=== PATIENT | female | born 1960 | race Caucasian/White ===

== ENCOUNTER 2016-04-04 16:04 | Inpatient (IN) | payer OTHER ==
[2016-04-04] VITALS (8 sets, daily range): BP systolic 80–115; BP diastolic 43–60
[~2016-04-04] VITALS: Ht 165.1 cm; Wt 99.3 kg
[2016-04-04] MEDS ORDERED: ASPIRIN 81 MG CHEW (CHILDREN'S ASA) PO ONE (16:30)
[2016-04-04] MEDS ORDERED: RX-NITROGLYCERIN 0.4 MG TAB BTL 25'S SL ONE (16:30)
[2016-04-04] MEDS ORDERED: LORazepam INJ 2 MG/ML (ATIVAN) VIAL IVP ONE (16:30)
[2016-04-04 16:36] LABS: BASOPHILS # (AUTO) 0.1 10^3/uL (0.0-0.1); BASOPHILS % (AUTO) 0 % (0-10); EOSINOPHILS # (AUTO) 0.2 10^3/uL (0.0-0.3); EOSINOPHILS % (AUTO) 1 % (0-10); LYMPHOCYTES % (AUTO) 20 % (12-44); MEAN CORPUSCULAR HEMOGLOBIN 28 PG (25-34); MEAN CORPUSCULAR HGB CONC 32 G/DL (32-36); MEAN CORPUSCULAR VOLUME 88 FL (80-99); MEAN PLATELET VOLUME 9.7 FL (7.4-10.4); MONOCYTES # (AUTO) 1.2 X 10^3 (0.0-1.0); MONOCYTES % (AUTO) 6 % (0-12); NEUTROPHILS # (AUTO) 14.5 X 10^3 (1.8-7.8); NEUTROPHILS % (AUTO) 73 % (42-75); PLATELET COUNT 294 10^3/uL (130-400); RED BLOOD COUNT 4.75 10^6/uL (4.35-5.85); RED CELL DISTRIBUTION WIDTH 14.9 % (10.0-14.5)
[2016-04-04 16:44] LABS: INR 0.9 (0.8-1.4)
[2016-04-04] MEDS ORDERED: NS IV 1000 ML 1,000 ML IV ONE ×2 (16:53→18:08)
[2016-04-04 16:54] LABS: ALANINE AMINOTRANSFERASE 26 U/L (0-55); ALBUMIN 3.9 G/DL (3.2-4.5); ANION GAP 13 MMOL/L (5-14); ASPARTATE AMINO TRANSFERASE 19 U/L (5-34); BILIRUBIN,TOTAL 0.3 MG/DL (0.1-1.0); BLOOD UREA NITROGEN 20 MG/DL (7-18); BUN/CREATININE RATIO 19; CALCIUM 8.9 MG/DL (8.5-10.1); CARBON DIOXIDE 22 MMOL/L (21-32); CHLORIDE 103 MMOL/L (98-107); CREATININE SERUM 1.07 MG/DL (0.60-1.30); GFR ESTIMATED 53; GLUCOSE 140 MG/DL (70-105); MAGNESIUM 1.6 MG/DL (1.8-2.4); POTASSIUM 4.1 MMOL/L (3.6-5.0); SODIUM 138 MMOL/L (135-145); TOTAL PROTEIN 6.3 G/DL (6.4-8.2)
[2016-04-04 16:59] LABS: MYOGLOBIN SERUM 42.8 NG/ML (10.0-92.0)
[2016-04-04 17:05] LABS: BAND NEUTROPHILS 0 %; BASOPHILS % (MANUAL) 0 %; EOSINOPHILS % (MANUAL) 0 %; LYMPHOCYTES % (MANUAL) 20 %; NEUTROPHILS % (MANUAL) 75 %
--- NOTE | 2016-04-04 17:07 | Diagnostic Imaging Report ---
INDICATION: Sudden onset shortness of breath and chest pain. EXAMINATION: PA chest was obtained at 4:30 p.m. FINDINGS: Heart and mediastinal silhouette are normal in appearance. The lungs are clear. There is no pneumothorax or pleural fluid. IMPRESSION: Negative chest. Dictated by: Dictated on workstation # [id number]
[2016-04-04] MEDS ORDERED: IOHEXOL 350 MG/ML 100 ML (OMNIPAQUE 350) VIAL IV ONE (17:45)
[2016-04-04] MEDS ORDERED: IOHEXOL 350 MG/ML 150 ML (OMNIPAQUE 350) VIAL IV ONE (17:45)
[2016-04-04] MEDS ORDERED: NS 100 ML (IVPB) BAG IV ONE (17:45)
[2016-04-04] MEDS ORDERED: cefTRIAXone INJECTION 1,000 MG in NORMAL SALINE (BAXTER MINI) 50 ML IV ONE (18:00)
--- NOTE | 2016-04-04 18:06 | ED Chest Pain ---
General Chief Complaint: Chest Pain Stated Complaint: CHEST PAIN/SOA Nursing Triage Note: PT TO ED 6 PER W/C W/ C/O CHEST PAIN ET SOA ONSET WHILE TRAVELING IN BACK SEAT OF VEHICLE FROM [facility] AFTER DROPPING GRANDDAUGHTER OFF. STATES SHE WAS ABOUT TO FALL ASLEEP WHEN SHE HAD SUDDEN ONSET NAUSEA ET "EVERYTHING WENT DARK" Nursing Sepsis Screen: No Definite Risk Source: patient Exam Limitations: no limitations History of Present Illness Time seen by provider: 16:11 Initial Comments This patient presents to the emergency room with complaints of acute lightheadedness, shortness of air, chest pain, and nausea that occurred suddenly while riding in the car. She also reports having sudden decrease in acuity of vision during the episode. She promptly presented to the emergency room after onset of symptoms. She is a patient of Dr. Noguera in [place]. She reports a history of COPD, asthma, tachycardia, and mitral valve prolapse. She reports having a heart catheter 3-4 years ago and a stress test about 2 years ago for evaluation of chronic chest pain. She reports no significant abnormalities with these tests aside from mitral valve prolapse. Studies were done at [facility] in [place]. She reports her symptoms today were beyond her chronic symptomatology. Allergies and Home Medications Allergies Coded Allergies: erythromycin base (Verified Allergy, Unknown, 04/04/16) Unspecified adverse reactions morphine (Verified Allergy, Unknown, 04/04/16) cefdinir (Verified Adverse Reaction, Severe, 04/04/16) Diarrhea and C. difficile colitis clindamycin (Verified Adverse Reaction, Severe, 04/04/16) Diarrhea and C. difficile colitis Home Medications 10 MG PRN ITCHING Prescribed by: MATT DAMON on 04/06/16 1404 Ciprofloxacin HCl 500 Mg Tablet #8 500 MG PO BID Prescribed by: OMER DEL ROSARIO on 04/06/16 1257 Esomeprazole Magnesium 20 Mg Capsule.dr #1 20 MG PO DAILY Prescribed by: MATT DAMON on 04/06/16 1404 Furosemide 20 Mg Tablet #1 20 MG PO UD every other day Prescribed by: MATT DAMON on 04/06/16 1404 Hydrocodone/Acetaminophen 1 Each Tablet #1 1 EACH PO Q4H PRN PRN PAIN Prescribed by: MATT DAMON on 04/06/16 1404 L. Acidophilus/Bulgaricus 1 Each Gran.pack #1 1 EACH PO PRN Prescribed by: MATT DAMON on 04/06/16 1404 Lisinopril 10 Mg Tablet #1 10 MG PO DAILY Prescribed by: MATT DAMON on 04/06/16 140 Loperamide HCl 2 Mg Tablet #1 2 MG PO PRN Prescribed by: MATT DAMON on 04/06/16 1404 Magnesium 250 Mg Tablet #1 250 MG PO DAILY take 3 tabs q am Prescribed by: MATT DAMON on 04/06/16 1404 Meloxicam 15 Mg Tablet #1 15 MG PO DAILY Prescribed by: MATT DAMON on 04/06/16 1404 Metoprolol Succinate 50 Mg Tab.er.24h #1 50 MG PO HS Prescribed by: MATT DAMON on 04/06/16 1404 Metronidazole 500 Mg Tablet #12 500 MG PO TID Prescribed by: OMER DEL ROSARIO on 04/06/16 1257 Review of Systems Constitutional: no symptoms reported EENTM: See HPI Respiratory: See HPI Cardiovascular: See HPI Gastrointestinal: See HPI Genitourinary: No Symptoms Reported Musculoskeletal: no symptoms reported Skin: no symptoms reported Psychiatric/Neurological: See HPI Endocrine: No Symptoms Reported Hematologic/Lymphatic: No Symptoms Reported Past Bkcyfwd-Nlupzj-Mfilta Hx Patient Social History Alcohol Use: Denies Use Recreational Drug Use: No Smoking Status: Never a Smoker Recent Foreign Travel: No Contact w/Someone Who Travel: No Recent Infectious Disease Expo: No Recent Hopitalizations: No Physical Abuse Screen: No Sexual Abuse: No Surgeries HX Surgeries: No Respiratory Hx Respiratory Disorders: Yes Respiratory Disorders: Asthma, COPD Cardiovascular Hx Cardiac Disorders: Yes (inappropriate tachycardia) Cardiac Disorders: Heart Attack, Valvular Heart Disease (mitral valve prolapse) Neurological Hx Neurological Disorders: No Reproductive System : No Genitourinary Hx Genitourinary Disorders: No Gastrointestinal Hx Gastrointestinal Disorders: Yes Gastrointestinal Disorders: C-Diff Musculoskeletal Hx Musculoskeletal Disorders: No Endocrine Hx Endocrine Disorders: Yes Endocrine Disorders: Diabetes, Non-Insulin dep HEENT HX ENT Disorders: No Cancer Hx Cancer: No Psychosocial Hx Psychiatric Problems: No Integumentary HX Skin/Integumentary Disorder: No Blood Transfusions Hx Blood Disorders: No Physical Exam Vital Signs Vital Sign - Last 12Hours 04/04/16 17:36 O2 Flow Rate 2 Capillary Refill : Less Than 3 Seconds General Appearance: WD/WN Anxious Mild Distress HEENT: PERRL/EOMI Normal ENT Inspection Pharynx Normal Neck: Non Tender Supple Respiratory: Chest Non Tender Lungs Clear Normal Breath Sounds No Accessory Muscle Use No Respiratory Distress Cardiovascular: Regular Rate, Rhythm No Edema No Murmur Normal Peripheral Pulses Gastrointestinal: Normal Bowel Sounds Non Tender Soft Extremity: Normal Inspection Non Tender No Calf Tenderness No Pedal Edema Other (negative Krystin) Neurologic/Psychiatric: Alert Oriented x3 No Motor/Sensory Deficits Normal Mood/Affect roll skinner II-XII Norm as Tested Skin: Normal Color Warm/Dry Critical Care Note Critical Care Start Time: 17:00 Stop Time: 19:30 Progress/Results/Core Measures Results/Orders Lab Results Laboratory Tests Test 04/04/16 16:25 04/04/16 17:35 04/04/16 18:00 04/04/16 19:44 Range/Units Activated Partial Thromboplast Time 21 L 24-35 SEC Alanine Aminotransferase (ALT/SGPT) 26 0-55 U/L Albumin 3.9 3.2-4.5 G/DL Alkaline Phosphatase 73 40-136 U/L Anion Gap 13 5-14 MMOL/L Aspartate Amino Transf (AST/SGOT) 19 5-34 U/L BUN/Creatinine Ratio 19 Band Neutrophils 0 % Basophils # (Auto) 0.1 0.0-0.1 10^3/uL Basophils % (Manual) 0 % Basophils (%) (Auto) 0 0-10 % Blood Morphology Comment NORMAL Blood Urea Nitrogen 20 H 7-18 MG/DL C-Reactive Protein High Sensitivity 1.85 H 0.00-0.50 MG/DL Calcium Level 8.9 8.5-10.1 MG/DL Carbon Dioxide Level 22 21-32 MMOL/L Chloride Level 103 98-107 MMOL/L Creatinine 1.07 0.60-1.30 MG/DL D-Dimer 0.30 0.00-0.49 UG/ML Eosinophils # (Auto) 0.2 0.0-0.3 10^3/uL Eosinophils % (Manual) 0 % Eosinophils (%) (Auto) 1 0-10 % Estimat Glomerular Filtration Rate 53 Glucose Level 140 H 70-105 MG/DL Hematocrit 42 35-52 % Hemoglobin 13.4 11.5-16.0 G/DL INR Comment 0.9 0.8-1.4 Lymphocytes # (Auto) 4.0 1.0-4.0 X 10^3 Lymphocytes % (Manual) 20 % Lymphocytes (%) (Auto) 20 12-44 % Magnesium Level 1.6 L 1.8-2.4 MG/DL Mean Corpuscular Hemoglobin 28 25-34 PG Mean Corpuscular Hemoglobin Concent 32 32-36 G/DL Mean Corpuscular Volume 88 80-99 FL Mean Platelet Volume 9.7 7.4-10.4 FL Monocytes # (Auto) 1.2 H 0.0-1.0 X 10^3 Monocytes % (Manual) 5 % Monocytes (%) (Auto) 6 0-12 % Myoglobin 42.8 10.0-92.0 NG/ML Neutrophils # (Auto) 14.5 H 1.8-7.8 X 10^3 Neutrophils % (Manual) 75 % Neutrophils (%) (Auto) 73 42-75 % Platelet Count 294 130-400 10^3/uL Potassium Level 4.1 3.6-5.0 MMOL/L Prothrombin Time 12.0 L 12.2-14.7 SEC Red Blood Count 4.75 4.35-5.85 10^6/uL Red Cell Distribution Width 14.9 H 10.0-14.5 % Sodium Level 138 135-145 MMOL/L Total Bilirubin 0.3 0.1-1.0 MG/DL Total Protein 6.3 L 6.4-8.2 G/DL Troponin I < 0.30 <0.30 NG/ML White Blood Count 20.0 H 4.3-11.0 10^3/uL Lactic Acid Level 3.9 *H 2.7 *H 0.5-2.0 MMOL/L Urine Bacteria NONE /HPF Urine Bilirubin NEGATIVE NEGATIVE Urine Casts NONE /LPF Urine Clarity CLEAR Urine Color YELLOW Urine Crystals NONE /LPF Urine Culture Indicated NO Urine Glucose (UA) NEGATIVE NEGATIVE Urine Ketones NEGATIVE NEGATIVE Urine Leukocyte Esterase NEGATIVE NEGATIVE Urine Mucus NEGATIVE /LPF Urine Nitrite NEGATIVE NEGATIVE Urine Protein 2+ H NEGATIVE Urine RBC NONE /HPF Urine RBC (Auto) NEGATIVE NEGATIVE Urine Specific [place] 1.010 L 1.016-1.022 Urine Squamous Epithelial Cells RARE /HPF Urine Urobilinogen NORMAL NORMAL MG/DL Urine WBC NONE /HPF Urine pH 6 5-9 Micro Results Microbiology 04/04/16 Blood Culture - Preliminary, Resulted No growth 04/04/16 Blood Culture - Preliminary, Resulted No growth My Orders Orders-ANA LILIA UPTON MD Aspirin Chewable Tablet (Baby Aspirin Ch (04/04/16 16:30) Rx-Nitroglycerin Sl Tabs (Rx-Nitrostat S (04/04/16 16:30) Lorazepam Injection (Ativan Injection) (04/04/16 16:30) Ns Iv 1000 Ml (Sodium Chloride 0.9%) (04/04/16 16:53) Lactic Acid Analyzer (04/04/16 17:26) Ua Culture If Indicated (04/04/16 17:26) Blood Culture (04/04/16 17:26) Ct Angio Chst/Abd/Pelv W (04/04/16 17:26) Iohexol Injection (Omnipaque 350 Mg/Ml 1 (04/04/16 17:45) Ns (Ivpb) (Sodium Chloride 0.9% Ivpb Bag (04/04/16 17:45) Iohexol Injection (Omnipaque 350 Mg/Ml 1 (04/04/16 17:45) Ceftriaxone Injection (Rocephin Injectio (04/04/16 18:00) Ns Iv 1000 Ml (Sodium Chloride 0.9%) (04/04/16 18:08) Ceftriaxone Injection (Rocephin Injectio (04/04/16 18:11) Normal Saline (Fernandes Mini) (Ns (Fernandes (04/04/16 18:11) Hs C Reactive Protein (04/04/16 18:22) Ns Iv 1000 Ml (Sodium Chloride 0.9%) (04/04/16 18:45) Vancomycin Iv Add-Farwell (Vancomycin Iv (04/04/16 18:45) Vancomycin Iv Add-[place] (Vancomycin Iv (04/04/16 18:52) Sodium Chloride (Add-[place]well) (Ns (Add-V (04/04/16 18:52) Medications Given in ED Vital Signs/I&O Vital Sign - Last 12Hours 04/04/16 04/04/16 04/04/16 16:16 16:16 17:36 Temp 99.7 Pulse 97 Resp 24 B/P 108/51 Pulse Ox 98 95 O2 Delivery Room Air Room Air Nasal Cannula O2 Flow Rate 2 Blood Pressure Mean: 70 Progress Note #1: Time: 16:52 Progress Note Patient is feeling better and reports her chest pain is back to baseline. Systolic blood pressure was noted to be 88. IV fluids were initiated. Progress Note #2: Time: 17:55 Progress Note Patient became suddenly hypotensive with a systolic blood pressure of 58 with a decrease in vision. Patient had been given a small dose of Ativan for her anxiety which may have impacted her blood pressure as well. Patient was placed in Trendelenburg. IV fluids are being bolused by pressure bag. Nitroglycerin had been previously ordered but was never administered. She also developed intense shivering. White count was noted to be 20,000 at the time. Lactic acid and blood culture were drawn. Sepsis is now within the consideration as a cause of her hypotension. Because patient also had chest pain, there was concern for developing aneurysmal bleed. Patient was taken to CT for angiogram. CT angiogram of the chest, abdomen, and pelvis was viewed by me. There were no obvious abnormalities. Report is pending. Patient has received one full liter of IV fluids and a second liter is infusing. She has 2 IVs. Antibiotics will be started as soon as possible. Patient is still in CT scan at the moment. Progress Note #3: Time: 18:30 Progress Note Blood pressure is now well within normal range after infusion of IV fluids. CT angiogram of the chest, abdomen and pelvis revealed no aneurysm. 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 This could be the source of potential sepsis. CRP has been ordered to help differentiate causes of hypotension. Lactic acid was elevated. Rocephin is infusing for initial treatment of possible sepsis. Progress Note #4: Time: 19:12 Progress Note Patient's blood pressures are stable. She remains tachycardic in the 120s. She received a gram of Rocephin and vancomycin is infusing along with a third liter of IV fluids running at 500 mL per hour. This should complete a 30 ML per kilogram bolus. Although patient has a septic picture with an elevated lactic acid, WBC, and hypotension, there is no clear source of infection. Patient will be treated as though she is septic for the time being until this convoluted case is sorted out. Dr. Del Rosario was contacted and agrees to admit the patient to the ICU with sepsis and chest pain. She requests consultation with Dr. Hamilton, Dr. Velasquez, and Dr. Agosto. Dr. Hamilton agrees with admission to the ICU with treatment for suspected sepsis. He suggests further antibiotics be Cipro and Flagyl to treat the potential panniculitis of the mesentery. Dr. Hamilton was contacted at 18:57. Dr. Velasquez was contacted at 18: 06. He agrees to consultation. Dr. Agosto was contacted at 19:10 and agrees with the antibiotic selection. Patient is concerned about C. difficile as she has had multiple C. difficile infections in the past. She cites clindamycin and Cefdinir as inciting antibiotics. She also has had adverse reactions to erythromycin and has an allergy to morphine. Probiotics will be started along with her antibiotics. ECG Initial ECG Impression Date: Apr 04, 2016 Initial ECG Impression Time: 16:07 Initial ECG Rate: 91 Initial ECG Rhythm: Normal Sinus Initial ECG Impression: Normal Comment Normal sinus rhythm with no ST elevation or depression. No abnormal intervals. LVH by voltage. Diagnostic Imaging Diagonstic Imaging: Xray Plain Films/CT/US/NM/MRI: chest Comments NAME: JOSE MIGUEL KLINE [facility] REC#: [id number] PT STATUS: REG ER : 1960 PHYSICIAN: KARYNA MEDEIROS APRN ADMIT DATE: 04/04/16/ER Signed Date of Exam: 04/04/16 CHEST 1 VIEW, AP/PA ONLY INDICATION: Sudden onset shortness of breath and chest pain. EXAMINATION: PA chest was obtained at 4:30 p.m. FINDINGS: Heart and mediastinal silhouette are normal in appearance. The lungs are clear. There is no pneumothorax or pleural fluid. IMPRESSION: Negative chest. Dictated by: Dictated on workstation # [id number] Dict: 04/04/16 1643 Trans: 04/04/161705 [facility] [id number] Interpreted by: JAKUB LOPZE MD Electronically signed by:JAKUB LOPEZ MD 04/04/16 1709 Plain Films/CT/US/NM/MRI: chest, abdomen, pelvis Comments CT angiogram of the chest, abdomen, and pelvis viewed by me and report reviewed. See report below: NAME: JOSE MIGUEL KLINE [facility] REC#: [id number] PT STATUS: REG ER : 1960 PHYSICIAN: ANA LILIA UPTON MD ADMIT DATE: 04/04/16/ER Draft Date of Exam:04/04/16 CT ANGIO CHST/ABD/PELV W PROCEDURE: CT angiography of the chest with contrast and CT abdomen and pelvis with contrast. TECHNIQUE: Multiple contiguous axial images were obtained through the chest, abdomen and pelvis after administration of intravenous contrast. Reconstructed MIP CT angiography acquisitions of the aorta were then performed. INDICATION: Aortic aneurysm COMPARISON: None FINDINGS: Attention was first directed to the vascular structures of the chest, abdomen, and pelvis. No aneurysm is demonstrated in the chest, abdomen or pelvis. On the axial images through the chest, there is a curvilinear area of contrast enhancement along the medial aspect of the aortic root and ascending aorta which is felt to be motion artifact from the adjacent pulmonary artery rather than dissection, better demonstrated as artifact on the coronal images. There is no evidence of pulmonary embolus. There is very minimal atherosclerosis without evidence of a hemodynamically significant stenosis of the aorta or its major branches. Chest: There is no pneumothorax, pleural fluid or focal pneumonia. Heart size is normal. There are a few prominent mediastinal lymph nodes, however, none are pathologically enlarged by size criteria. There is mild heterogeneity of the thyroid gland. The right lobe is asymmetrically larger than the left. No acute osseous abnormality is demonstrated. Abdomen/pelvis: There is moderate diffuse hepatic steatosis. No focal hepatic abnormality is seen. The gallbladder is absent. The portal vein appears patent. The pancreas, spleen, adrenal glands and kidneys appear unremarkable. The uterus appears absent. There is no evidence of appendicitis. No free fluid is demonstrated. The urinary bladder appears grossly unremarkable. There is some soft tissue stranding in the mesentery of the central abdomen with a few scattered prominent lymph nodes through this region possibly related to mesenteric panniculitis. No additional inflammatory changes are seen. Osseous structures appear unremarkable with the exception of some degenerative changes in the lumbar spine. IMPRESSION: 1. There is no evidence of an acute vascular abnormality in the chest, abdomen, or pelvis. No evidence of aneurysm or pulmonary embolus. 2. No acute abnormality seen in the chest 3. No acute abnormality is suspected in the abdomen and pelvis. 4. 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 5. Diffuse hepatic steatosis Dictated on workstation # [id number] Dict: 04/04/16 1809 Trans: 04/04/16 1824 [facility] [id number] Interpreted by: FESTUS WILKINS DO Departure Impression Impression: Primary Impression: Sepsis Qualified Code: A41.9 - Sepsis, unspecified organism Additional Impressions: Chest pain Qualified Code: R07.9 - Chest pain, unspecified Hypotension Qualified Code: I95.9 - Hypotension, unspecified Mesenteric panniculitis Disposition: ADMITTED INPATIENT Condition: Improved Decision to Admit Reason: Admit from ER (General) Decision to Admit/Date: Apr 04, 2016 Time/Decision to Admit Time: 16:30 Departure-Patient Inst. Referrals: NO,LOCAL PHYSICIAN (PCP/Family) Primary Care Physician Scripts Loperamide HCl (Imodium A-D)2 Mg Tablet2 Mg PO PRN #1 TAB Prov:OMER DEL ROSARIO DO 04/06/16 L. Acidophilus/Bulgaricus (Floranex Granules Packet)1 Each Gran.pack1 Each PO PRN #1 EA Prov:OMER DEL ROSARIO DO 04/06/16 [certirizine] No Conflict Check10 Mg PRN ITCHING Prov:OMER DEL ROSAROI DO 04/06/16 Magnesium 250 Mg [id number] Mg PO DAILY #1 TAB take 3 tabs q am Prov:OMER DEL ROSARIO DO 04/06/16 Esomeprazole Magnesium (Nexium)20 Mg Capsule.dr20 Mg PO DAILY #1 CAP Prov:OMER DEL ROSARIO DO 04/06/16 Lisinopril 10 Mg [id number] Mg PO DAILY #1 TAB Prov:OMER DEL ROSARIO DO 04/06/16 Meloxicam 15 Mg [id number] Mg PO DAILY #1 TAB Prov:OMER DEL ROSARIO DO 04/06/16 Furosemide 20 Mg Bhkstq75 Mg PO UD #1 TAB every other day Prov:OMER DEL ROSARIO DO 04/06/16 Metoprolol Succinate (Toprol Xl)50 Mg Tab.er.24h50 Mg PO HS #1 TAB Prov:OMER DEL ROSARIO DO 04/06/16 Hydrocodone/Acetaminophen (Hydrocodon -Acetaminophen 5-325)1 Each Tablet1 Each PO Q4H PRN PAIN #1 TAB Prov:OMER DEL ROSARIO DO 04/06/16 Metronidazole (Flagyl)500 Mg [id number] Mg PO TID #12 TAB Prov:OMER DEL ROSARIO DO 04/06/16 Ciprofloxacin HCl 500 Mg [id number] Mg PO BID #8 TAB Prov:OMER DEL ROSARIO DO 04/06/16 ANA LILIA UPTON MD Apr 04, 2016 18:06
[2016-04-04 18:10] LABS: BILIRUBIN,URINE NEGATIVE (NEGATIVE); KETONES,URINE NEGATIVE (NEGATIVE); LEUKOCYTE ESTERASE ,URINE NEGATIVE (NEGATIVE); NITRITE,URINE NEGATIVE (NEGATIVE); PH,URINE 6 (5-9); PROTEIN,URINE 2+ (NEGATIVE); UROBILINOGEN,URINE NORMAL (NORMAL)
[2016-04-04] MEDS ORDERED: NORMAL SALINE (BAXTER MINI) 50 ML IV ONE (18:11)
[2016-04-04] MEDS ORDERED: cefTRIAXone 1 GM (ROCEPHIN) VIAL ONE (18:11)
[2016-04-04 18:16] LABS: SQUAMOUS EPITHELIAL CELL,UR RARE /HPF
--- NOTE | 2016-04-04 18:24 | Diagnostic Imaging Report ---
PROCEDURE: CT angiography of the chest with contrast and CT abdomen and pelvis with contrast. TECHNIQUE: Multiple contiguous axial images were obtained through the chest, abdomen and pelvis after administration of intravenous contrast. Reconstructed MIP CT angiography acquisitions of the aorta were then performed. INDICATION: Aortic aneurysm COMPARISON: None FINDINGS: Attention was first directed to the vascular structures of the chest, abdomen, and pelvis. No aneurysm is demonstrated in the chest, abdomen or pelvis. On the axial images through the chest, there is a curvilinear area of contrast enhancement along the medial aspect of the aortic root and ascending aorta which is felt to be motion artifact from the adjacent pulmonary artery rather than dissection, better demonstrated as artifact on the coronal images. There is no evidence of pulmonary embolus. There is very minimal atherosclerosis without evidence of a hemodynamically significant stenosis of the aorta or its major branches. Chest: There is no pneumothorax, pleural fluid or focal pneumonia. Heart size is normal. There are a few prominent mediastinal lymph nodes, however, none are pathologically enlarged by size criteria. There is mild heterogeneity of the thyroid gland. The right lobe is asymmetrically larger than the left. No acute osseous abnormality is demonstrated. Abdomen/pelvis: There is moderate diffuse hepatic steatosis. No focal hepatic abnormality is seen. The gallbladder is absent. The portal vein appears patent. The pancreas, spleen, adrenal glands and kidneys appear unremarkable. The uterus appears absent. There is no evidence of appendicitis. No free fluid is demonstrated. The urinary bladder appears grossly unremarkable. There is some soft tissue stranding in the mesentery of the central abdomen with a few scattered prominent lymph nodes through this region possibly related to mesenteric panniculitis. No additional inflammatory changes are seen. Osseous structures appear unremarkable with the exception of some degenerative changes in the lumbar spine. IMPRESSION: 1. There is no evidence of an acute vascular abnormality in the chest, abdomen, or pelvis. No evidence of aneurysm or pulmonary embolus. 2. No acute abnormality seen in the chest 3. No acute abnormality is suspected in the abdomen and pelvis. 4. 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 5. Diffuse hepatic steatosis Dictated by: Dictated on workstation # [id number]
[2016-04-04] MEDS ORDERED: NS IV 1000 ML 1,000 ML IV SCH (18:45)
[2016-04-04] MEDS ORDERED: VANCOMYCIN IV ADD-VANTAGE 1,000 MG in SODIUM CHLORIDE (ADD-VANTAGE) 250 ML IV ONE (18:45)
[2016-04-04] MEDS ORDERED: SODIUM CHLORIDE (ADD-VANTAGE) 250 ML ONE (18:52)
[2016-04-04] MEDS ORDERED: VANCOMYCIN 1 GM ADD-VANTAGE VIAL IV ONE (18:52)
[2016-04-04] MEDS ORDERED: metroNIDAZOLE 500MG/100ML IVPB 100 ML ONE (21:22)
[2016-04-04] MEDS ORDERED: CIPROFLOXACIN IV 400MG/200ML 200 ML IV ONE (21:22)
[2016-04-04] MEDS ORDERED: ONDANSETRON 4 MG/2 ML (SDV) Z0FRAN IV PRN (22:00)
[2016-04-04] MEDS ORDERED: NS IV 1000 ML 1,000 ML ONE (22:20)
[2016-04-05] VITALS (15 sets, daily range): BP systolic 81–138; BP diastolic 37–73
[2016-04-05] MEDS: NOREPINEPHRINE 4 MG in D5W 250 ML IV SCH ×2 (00:45→14:05)
[2016-04-05] MEDS ORDERED: NOREPINEPHRINE FOR DRIPS 4 MG/4 ML AMP IV ONE (03:14)
[2016-04-05] MEDS ORDERED: D5W 250 ML (IVPB) 250 ML IV ONE (03:14)
[2016-04-05] MEDS: NS IV 1000 ML 1,000 ML IV SCH ×4 (03:36→20:53)
[2016-04-05 03:48] LABS: BASOPHILS % (AUTO) 0 % (0-10); EOSINOPHILS # (AUTO) 0.2 10^3/uL (0.0-0.3); EOSINOPHILS % (AUTO) 2 % (0-10); LYMPHOCYTES # (AUTO) 2.9 X 10^3 (1.0-4.0); LYMPHOCYTES % (AUTO) 22 % (12-44); MEAN CORPUSCULAR HEMOGLOBIN 28 PG (25-34); MEAN CORPUSCULAR HGB CONC 32 G/DL (32-36); MEAN CORPUSCULAR VOLUME 88 FL (80-99); MEAN PLATELET VOLUME 9.5 FL (7.4-10.4); MONOCYTES # (AUTO) 0.7 X 10^3 (0.0-1.0); MONOCYTES % (AUTO) 6 % (0-12); NEUTROPHILS # (AUTO) 9.1 X 10^3 (1.8-7.8); NEUTROPHILS % (AUTO) 70 % (42-75); PLATELET COUNT 224 10^3/uL (130-400); RED BLOOD COUNT 4.05 10^6/uL (4.35-5.85); WHITE BLOOD COUNT 12.9 10^3/uL (4.3-11.0)
[2016-04-05 03:59] LABS: PROTHROMBIN TIME PATIENT 12.8 SEC (12.2-14.7)
[2016-04-05 04:11] LABS: ALANINE AMINOTRANSFERASE 30 U/L (0-55); ALBUMIN 3.1 G/DL (3.2-4.5); ANION GAP 10 MMOL/L (5-14); ASPARTATE AMINO TRANSFERASE 19 U/L (5-34); BILIRUBIN,TOTAL 0.3 MG/DL (0.1-1.0); BLOOD UREA NITROGEN 12 MG/DL (7-18); BUN/CREATININE RATIO 16; CALCIUM 7.6 MG/DL (8.5-10.1); CARBON DIOXIDE 19 MMOL/L (21-32); CHLORIDE 111 MMOL/L (98-107); CREATININE SERUM 0.74 MG/DL (0.60-1.30); GFR ESTIMATED > 60; GLUCOSE 97 MG/DL (70-105); MAGNESIUM 1.3 MG/DL (1.8-2.4); PHOSPHORUS 3.7 MG/DL (2.3-4.7); POTASSIUM 4.2 MMOL/L (3.6-5.0); SODIUM 140 MMOL/L (135-145); TOTAL PROTEIN 4.9 G/DL (6.4-8.2)
[2016-04-05 04:12] LABS: CHOLESTEROL 173 MG/DL (< 200); DIRECT LDL 85 MG/DL (1-129); TRIGLYCERIDES 319 MG/DL (<150); VLDL CHOLESTEROL 64 MG/DL (5-40)
[2016-04-05 04:18] LABS: TROPONIN I < 0.30 NG/ML (<0.30)
[2016-04-05] MEDS: POTASSIUM CL 10MEQ/50ML IVPB 50 ML IV SCH (04:53)
[2016-04-05] MEDS: KCL 20 MEQ TAB (K-DUR) PO SCH (04:54)
[2016-04-05] MEDS: MAGNESIUM 1 GM/100 ML IVPB 100 ML IV SCH ×5 (04:54→09:26)
[2016-04-05] MEDS ORDERED: ACETAMINOPHEN 325 MG TABLET/CAPLET (TYLENOL) ONE (05:07)
--- NOTE | 2016-04-05 07:08 | Pulmonary Consultation ---
History of Present Illness History of Present Illness Date of Consultation 04/05/16 07:03 Date of Admission History of Present Illness 55yo with hx of COPD, and Asthma presented to ED secondary to lightheadedness, worsening SOB, and CP. Pt was found to be hypotensive and required levophed through the night. SHe is now feeling much improved and is off levophed. SHe denies pain she has had some nausea. I am consulted for pulmonary management Allergies and Home Medications Allergies Coded Allergies: erythromycin base (Verified Allergy, Unknown, 04/04/16) Unspecified adverse reactions morphine (Verified Allergy, Unknown, 04/04/16) cefdinir (Verified Adverse Reaction, Severe, 04/04/16) Diarrhea and C. difficile colitis clindamycin (Verified Adverse Reaction, Severe, 04/04/16) Diarrhea and C. difficile colitis Past Ligxsvu-Fhrday-Zfaxkh Hx Patient Social History Alcohol Use: Denies Use Recreational Drug Use: No Smoking Status: Never a Smoker Recent Foreign Travel: No Contact w/Someone Who Travel: No Recent Infectious Disease Expo: No Recent Hopitalizations: No Physical Abuse Screen: No Sexual Abuse: No Immunizations Up To Date Tetanus Booster (TDap): Less than 5yrs Date of Influenza Vaccine: Jan 14, 2016 Surgeries HX Surgeries: No Respiratory Hx Respiratory Disorders: Yes Respiratory Disorders: Asthma, COPD Cardiovascular Hx Cardiac Disorders: Yes (inappropriate tachycardia) Cardiac Disorders: Heart Attack, Valvular Heart Disease (mitral valve prolapse) Neurological Hx Neurological Disorders: No Reproductive System : No Genitourinary Hx Genitourinary Disorders: No Gastrointestinal Hx Gastrointestinal Disorders: Yes Gastrointestinal Disorders: C-Diff Musculoskeletal Hx Musculoskeletal Disorders: No Endocrine Hx Endocrine Disorders: Yes Endocrine Disorders: Diabetes, Non-Insulin dep HEENT HX ENT Disorders: No Cancer Hx Cancer: No Psychosocial Hx Psychiatric Problems: No Integumentary HX Skin/Integumentary Disorder: No Blood Transfusions Hx Blood Disorders: No Family Medical History Family Medial History: Hypertension 19 FATHER Exam Exam Vital Signs Date Time Temp Pulse Resp B/P Pulse Ox O2 Delivery O2 Flow Rate FiO2 04/05/16 06:00 109 20 101/47 95 Nasal Cannula 2.00 04/05/16 05:00 104 13 106/52 97 Nasal Cannula 2.00 04/05/16 04:00 97.2 04/05/16 04:00 96 Nasal Cannula 2.00 04/05/16 04:00 114 27 99/41 98 Nasal Cannula 2.00 04/05/16 03:35 82/54 04/05/16 03:30 107 10 91/52 98 Nasal Cannula 2.00 04/05/16 03:00 95 18 93/37 97 Nasal Cannula 2.00 04/05/16 02:00 93 19 81/48 98 Nasal Cannula 2.00 04/05/16 01:00 104 04/05/16 01:00 104 14 95/50 96 Nasal Cannula 2.00 04/05/16 00:00 96 17 86/47 97 Nasal Cannula 2.00 04/05/16 00:00 96 Nasal Cannula 2.00 04/05/16 00:00 98.6 04/04/16 23:36 Nasal Cannula 2.00 04/04/16 23:30 100 19 82/55 97 Nasal Cannula 2.00 04/04/16 23:00 103 13 84/44 97 Nasal Cannula 2.00 04/04/16 22:30 98 20 80/43 97 Nasal Cannula 2.00 04/04/16 22:00 103 9 115/59 98 Nasal Cannula 2.00 04/04/16 21:45 102 11 108/60 98 Nasal Cannula 2.00 04/04/16 21:30 108 8 91/51 98 Nasal Cannula 2.00 04/04/16 21:03 117 04/04/16 21:00 111 20 94/53 98 Nasal Cannula 2.00 04/04/16 21:00 98.1 04/04/16 20:51 117 04/04/16 20:45 118 18 105/48 98 Nasal Cannula 2.00 04/04/16 20:40 Nasal Cannula 2.00 04/04/16 20:35 99.4 118 20 99 Nasal Cannula 2 04/04/16 17:36 95 Nasal Cannula 2 04/04/16 16:16 Room Air 04/04/16 16:16 99.7 97 24 108/51 98 Room Air I & O 04/05/16 07:00 Intake Total 1000 ml Output Total 800 ml Balance 200 ml General Appearance: WD/WN Anxious Mild Distress HEENT: PERRL/EOMI Normal ENT Inspection Pharynx Normal Neck: Non Tender Supple Respiratory: Chest Non Tender Lungs Clear Normal Breath Sounds No Accessory Muscle Use No Respiratory Distress Cardiovascular: Regular Rate, Rhythm No Edema No Murmur Normal Peripheral Pulses Capillary Refill: Less Than 3 Seconds Extremity: Normal Inspection Non Tender No Calf Tenderness No Pedal Edema Other (negative Krystin) Neurologic/Psychiatric: Alert Oriented x3 No Motor/Sensory Deficits Normal Mood/Affect rn hyperbaric II-XII Norm as Tested Skin: Normal Color Warm/Dry Results Lab Laboratory Tests 04/04/16 16:25 04/05/16 03:37 Assessment/Plan Assessment/Plan Sepsis - probably intra abdominal -- no pneumonia, no UTI -cultures pending -continue flagyl, cipro for now -IVF -CT shows panniculitis HYpotension - resolved -Now off Levophed -D/C ontiveros - get up to chair Hypomagnesium -replace obesity Clinical Quality Measures AMI/AHF: ASA po Prior to arrival: No DVT/VTE Risk/Contraindication: Risk Factor Score Per Nursin RFS Level Per Nursing on Admit: 2=Moderate PATRICIA GUIDRY DO Apr 05, 2016 07:08
[2016-04-05] MEDS: LACTOBACILLUS Acidoph/Bulgar (LACTINEX/FLORANEX) TAB PO SCH ×3 (08:00→17:27)
--- NOTE | 2016-04-05 09:55 | Diagnostic Imaging Report ---
EXAMINATION: Chest radiograph, portable AP view. DATE: April 05, 2016, at 0521 hours. INDICATION: 55-year-old female, sepsis, chest pain, hypotension. COMPARISON: April 04, 2016. FINDINGS: Stable overall appearance of the cardiomediastinal silhouette. There is no identified pneumothorax. There is no large pleural effusion. There is no identified focal airspace consolidation. IMPRESSION: No identified acute cardiopulmonary abnormality. Dictated by: Dictated on workstation # [id number]
[2016-04-05] MEDS: PANTOPRAZOLE 40 MG/10 ML (PROTONIX) VIAL IV SCH (10:23)
[2016-04-05] MEDS: CIPROFLOXACIN 400 MG/D5W 200 ML (PRE-MIX) IV SCH ×2 (10:24→21:01)
--- NOTE | 2016-04-05 11:06 | History & Physical-Hospitalist ---
HPI History of Present Illness: HPI/Chief Complaint Chief complaint: Fever and leukocytosis with hypotension requiring pressor therapy with IV fluid resuscitation History of present illness: This is a 55-year-old white female clinic patient of Dr. 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 She reported chest pain also and has a long history of chronic chest pain and had a detailed cardiac workup at [facility] due to this issue. She reports that overall she has not felt well for a long time feeling like she is completely spent and drained by Thursday after work week and sleeps most of the weekend to recover until going back on Thursday. Dr. Noguera usually places her on an antibiotic of which she feels much better but it does not last long. 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 We have just stopped pressor therapy after IV fluid resuscitation but blood pressure is cycled to be 110s. Her white count did go down from 20k to 12,000 and overall she feels much better. Source: patient Exam Limitations: no limitations Date Seen 04/05/16 Attending Physician Brittany Cuevas DO PCP No,Local Physician Referring Physician Date of Admission Apr 04, 2016 at 19:44 Home Medications & Allergies Home Medications Reviewed patient Home Medication Reconciliation Form Allergies Coded Allergies: erythromycin base (Verified Allergy, Unknown, 04/04/16) Unspecified adverse reactions morphine (Verified Allergy, Unknown, 04/04/16) cefdinir (Verified Adverse Reaction, Severe, 04/04/16) Diarrhea and C. difficile colitis clindamycin (Verified Adverse Reaction, Severe, 04/04/16) Diarrhea and C. difficile colitis Past Aatuaet-Zguxnl-Ydhtzp Hx Patient Social History Employed/Student: employed ([address]) Alcohol Use: Denies Use Recreational Drug Use: No Smoking Status: Never a Smoker Physical Abuse Screen: No Sexual Abuse: No Recent Foreign Travel: No Contact w/other who traveled: No Recent Hopitalizations: No Recent Infectious Disease Expo: No Immunizations Up To Date Tetanus Booster (TDap): Less than 5yrs Date of Influenza Vaccine: Jan 14, 2016 Surgeries HX Surgeries: No Respiratory Hx Respiratory Disorders: Yes Respiratory Disorders: Sleep Apnea Cardiovascular Hx Cardiovascular Disorders: Yes (inappropriate tachycardia) Cardiac Disorders: Heart Attack, Valvular Heart Disease (mitral valve prolapse) Neurological Hx Neurological Disorders: No Reproductive System : No Genitourinary Hx Genitourinary Disorders: No Gastrointestinal Hx Gastrointestinal Disorders: Yes Gastrointestinal Disorders: C-Diff Musculoskeletal Hx Musculoskeletal Disorders: No Endocrine Hx Endocrine Disorders: Yes Endocrine Disorders: Diabetes, Non-Insulin dep HEENT HX ENT Disorders: No Cancer Hx Cancer: No Psychosocial Hx Psychiatric Problems: No Integumentary HX Skin/Integumentary Disorder: No Blood Transfusions Hx Blood Disorders: No Family Medical History Family Hx: Hypertension 19 FATHER Review of Systems Constitutional: see HPI dizziness fever malaise weakness EENTM: no symptoms reported Respiratory: cough Cardiovascular: chest pain Gastrointestinal: no symptoms reported Genitourinary: no symptoms reported Musculoskeletal: no symptoms reported Skin: no symptoms reported Psychiatric/Neurological: No Symptoms Reported All Other Systems Reviewed Negative Unless Noted: Yes Physical Exam Physical Exam Vital Signs Vital Sign - Last 12Hours 04/04/16 17:36 O2 Flow Rate 2 Capillary Refill : Less Than 3 Seconds General Appearance: No Apparent Distress WD/WN Chronically ill Obese Eyes: Bilateral Eye Normal Inspection, Bilateral Eye PERRL HEENT: PERRL/EOMI Normal ENT Inspection Pharynx Normal Neck: Full Range of Motion Normal Inspection Non Tender Supple Carotid Bruit Respiratory: Chest Non Tender Lungs Clear Normal Breath Sounds No Accessory Muscle Use No Respiratory Distress Cardiovascular: Regular Rate, Rhythm No Edema No Gallop No JVD No Murmur Normal Peripheral Pulses Gastrointestinal: Normal Bowel Sounds No Organomegaly No Pulsatile Mass Non Tender Soft Back: Normal Inspection No CVA Tenderness No Vertebral Tenderness Extremity: Normal Capillary Refill Normal Inspection Normal Range of Motion Non Tender No Calf Tenderness No Pedal Edema Neurologic/Psychiatric: Alert Oriented x3 No Motor/Sensory Deficits Normal Mood/Affect Skin: Normal Color Warm/Dry Lymphatic: No Adenopathy Results Results/Procedures Lab Laboratory Tests 04/04/16 16:25 04/05/16 03:37 Assessment/Plan Admission Diagnosis 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 Noguera but returns rapidly Obstructive sleep apnea Chronic chest pain of unknown etiology has had full workup in the past Assessment and Plan Maintain in cardiac stepdown Await cardiology recommendations Maintain IV fluid and antibiotic administration Appreciate general surgery input Monitor closely Clinical Quality Measures AMI/AHF: ASA po Prior to arrival: No DVT/VTE Risk/Contraindication: Risk Factor Score Per Nursin RFS Level Per Nursing on Admit: 2=Moderate BRITTANY CUEVAS DO Apr 05, 2016 11:06
[2016-04-05] MEDS: metroNIDAZOLE 500 MG/100 ML IVPB (PRE-MIX) IV SCH ×2 (12:43→21:00)
--- NOTE | 2016-04-05 15:09 | CONSULTATION REPORT ---
DATE OF CONSULTATION: 04/05/2016 REFERRING PHYSICIAN: DIAGNOSES: 1. Unexplained hypotension. 2. Mesenteric lymphadenitis. I have been asked by Dr. Perez, the ER physician, to see this lady admitted with unexplained hypotension and evidence of early sepsis. Pulmonary embolism and aneurysmal disease have been ruled out. Her lactic acid was elevated to more than 2 mg, supporting the diagnosis of sepsis. She has since received intravenous antibiotics, fluids and vasopressors. The only abnormality on the CT scan is mesenteric lymphadenitis. This has been termed mesenteric panniculitis, by the radiologist, the exact significance of which is unclear. She denies any abdominal symptoms. Her comorbidities are listed in Dr. Perez's documentation. EXAMINATION: On examination, she is awake and comfortable. VITAL SIGNS: Her blood pressure is improved with a systolic of 110 mmHg. Levophed has been stopped for at least 2 hours prior to my evaluation. ABDOMEN: Her abdomen is soft and nontender. Her white cell count was elevated at 20,000 at the time of admission, this has since improved to 12,000. Her magnesium was low this morning and has since been replaced. At this point, the diagnosis is unclear. Therefore evaluations would continue in an attempt to find the diagnosis. However, I do not see any indication for any surgical intervention. Job ID: [id number] Dictated Date: 04/05/2016 12:03:59 Assurance Analyst Date: 04/05/2016 15:04:43/les PETERSEN
--- NOTE | 2016-04-05 15:32 | Consultation-Cardiology ---
HPI-Cardiology Cardiology Consultation: Date of Consultation 04/05/16 Date of Admission Attending Physician Brittany Cuevas DO Admitting Physician Laura,Local Physician Consulting Physician Suly VELASQUEZ MD HPI: Chief Complaint: chest pain, nausea, not feeling well this is a 55-year-old lady who follows with cardiology at [facility] in [place]. She had a previous coronary angiography 2 years ago which was normal according to the patient. She was passing through [place] when she felt some chest discomfort, nausea and vomiting. She denies any significant abdominal pain, syncope, near-syncope, palpitation, shortness of breath. Review of Systems-Cardiology Review of Systems Constitutional: No As described under HPI, No no symptoms reported, No chills, No fever, No lightheadedness, No malaise, No tiredness, No weight loss, No weight gain, No other Eyes: No As described under HPI, No no symptoms reported, No blindness, No blurred vision, No contact lenses, No drainage, No decreased acuity, No foreign body sensation, No glasses, No inflammation, No pain, No photophobia, No previous injury, No shadows, No tunnel vision, No other, No vision change Ears/Nose/Throat: No As described under HPI, No no symptoms reported, No chronic hearing loss, No epistaxis, No ear discharge, No ear pain, No loose teeth, No mouth pain, No mouth swelling, No nasal drainage, No nose pain, No recent hearing loss, No throat pain, No throat swelling, No ulcerations, No other Respiratory: No no symptoms reported, No As described under HPI, No cough, No orthopnea, No shortness of breath, No SOB with excertion, No SOB at rest, No stridor, No wheezing, No other Cardiovascular: chest pain Gastrointestinal: No no symptoms reported, No As described under HPI, No abdomen distended, No abdominal pain, No blood streaked bowels, No constipation , No diarrhea, No difficulty swallowing, nauseaNo poor appetite, No poor fluid intake, No rectal bleeding, vomitingNo other, No nausea/vomiting/diarrhea, No stool coloration changes Genitourinary: No no symptoms reported, No As described under HPI, No burning, No dysuria, No discharge, No frequency, No flank pain, No hematuria, No incontinence, No pain, No urgency, No other, No urine frequency changes, No urine coloration changes Skin: No no symptoms reported, No As described under HPI, No change in color, No change in hair/nails, No dryness, No lesions, No lumps, No rash, No other, No skin related problems, No ulcerations, No rash on exposed areas, No ulcerations on exposed areas Psychiatric/Neurological: No As described under HPI, No anxiety, No depression , No emotional problems, No focal weakness, No headache, No no symptoms reported , No numbness, No other, No pre-existing deficit, No seizure, No syncope, No tingling, No tremors, No weakness All Other Systems Reviewed Negative Unless Noted: Yes [id number] Hx Patient Social History Employed/Student: employed ([id number]) Alcohol Use: Denies Use Recreational Drug Use: No Smoking Status: Never a Smoker Recent Foreign Travel: No Recent Infectious Disease Expo: No Hospitalization with Isolation: Denies Physical Abuse Screen: No Sexual Abuse: No Immunizations Up To Date Tetanus Booster (TDap): Less than 5yrs Date of Influenza Vaccine: Jan 14, 2016 Past Medical History PMH As described under Assessment. Family Medical History Family History: Hypertension 19 FATHER Allergies and Home Medications Allergies Coded Allergies: erythromycin base (Verified Allergy, Unknown, 04/04/16) Unspecified adverse reactions morphine (Verified Allergy, Unknown, 04/04/16) cefdinir (Verified Adverse Reaction, Severe, 04/04/16) Diarrhea and C. difficile colitis clindamycin (Verified Adverse Reaction, Severe, 04/04/16) Diarrhea and C. difficile colitis Physical Exam-Cardiology Physical Exam Vital Signs/I&O Vital Sign - Last 12Hours 04/05/16 04/05/16 04/05/16 04/05/16 03:30 03:35 04:00 04:00 Pulse 107 114 Resp 10 27 B/P 91/52 82/54 99/41 Pulse Ox 98 98 96 O2 Delivery Nasal Cannula Nasal Cannula Nasal Cannula O2 Flow Rate 2.00 2.00 2.00 04/05/16 04/05/16 04/05/16 04/05/16 04:00 05:00 06:00 07:00 Temp 97.2 Pulse 104 109 105 Resp 13 20 B/P 106/52 101/47 Pulse Ox 97 95 O2 Delivery Nasal Cannula Nasal Cannula O2 Flow Rate 2.00 2.00 04/05/16 04/05/16 04/05/16 04/05/16 08:00 08:00 08:27 12:00 Pulse 92 84 Resp 16 13 B/P 111/52 138/73 Pulse Ox 96 98 98 O2 Delivery Nasal Cannula Nasal Cannula Nasal Cannula Nasal Cannula O2 Flow Rate 2.00 2.00 2.00 2.00 04/05/16 13:00 Pulse 93 Intake and Output 04/05/16 00:00 Intake Total 500 ml Output Total 250 ml Balance 250 ml Capillary Refill : Less Than 3 Seconds Constitutional: No appears stated age, No AAO x 3, No apparent distress, No PERRL, No well-developed, No well-nourished, No other HEENT: No PERRL, No normal ENT inspection, No TMs normal, No pharynx normal, No scleral icterus (R), No scleral icterus (L), No pale conjunctivae (R), No pale conjunctivae (L), No photophobia, No TM abnormal (R), No TM abnormal (L), No pharyngeal erythema, No tonsillar exudate, No other, No discharge, No EOMI, No hearing is well preserved, No hard of hearing, No oral hygience is good, No ulceration, No xanthelasmas are seen Neck: No non-tender, No full range of motion, No supple, No normal inspection, No carotid bruit, No limited range of motion, No lymphadenopathy (R), No lymphadenopathy (L), No tender lateral, No tender midline, No thyromegaly, No other, No carotid pulses are 2 + bilaterally, No with good upstrokes Respiratory: No accessory muscle use, No respiratory distress, No chest tender , No chest expansion is symmetric, No chest is bilaterally symmetric, No lungs clear to percussion, No lungs clear to auscultation, No crackles, No rhonchi, No rales, No stridor, No wheezing, No pleural rub, No other Cardiovascular: No regular rate-rhythm, No irregularly irregular, No extra beats, No parasternal heave is noted, No JVD, No edema, No bradycardia, No tachycardia, No point of maximal impulse, No cardiac thrills are palpable, No S1 and S2, No gallop/S3, No gallop/S4, No diastolic murmur, No systolic murmur, No friction rub, No click, No other Gastrointestinal: No tender, No soft, No round, No distended, No pulsatile mass , No organomegaly, No guarding, No rebound, No tenderness, No hernia, No mass, No audible bowel sounds, No abnormal bowel sounds, No abdominal bruits, No spleenomegaly, No other Rectal: deferred Extremities: No normal range of motion, No non-tender, No normal inspection, No pedal edema, No calf tenderness, No normal capillary refill, No pelvis stable , No calf tenderness, No inflammation, No pedal edema, No slow capillary refill , No swelling, No other, No abrasion, No clubbing, No cyanosis, No ecchymosis, No laceration, No no lower extremity edema bilateral, No significant edema, No tenderness, No wound Neurologic/Psychiatric: No 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 nml as tested, No no motor/sensory deficits, No alert, No normal mood/affect, No oriented x 3, No abnormal cerebellar tests, No abnormal 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, No abnormal gait, No aphasia, No EOM palsy, No facial droop, No motor weakness, No sensory deficit, No depressed affect, No disoriented x 3, No other, No grossly intact, No power is 5/5 both on sides Skin: No normal color, No warm/dry, No cyanosis, No cool, No diaphoresis, No damp, No ecchymosis, No jaundice, No mottled, No pallor, No rash, No tattoos/ piercings, No ulcerations, No rash on exposed areas, No ulcerations on exposed areas, No other Data Review Labs Laboratory Tests 04/04/16 16:25: Activated Partial Thromboplast Time 21L, Alanine Aminotransferase (ALT/SGPT) 26 , Albumin 3.9, Alkaline Phosphatase 73, Anion Gap 13, Aspartate Amino Transf ( AST/SGOT) 19, BUN/Creatinine Ratio 19, Band Neutrophils 0, Basophils # (Auto) 0.1, Basophils % (Manual) 0, Basophils (%) (Auto) 0, Blood Morphology Comment NORMAL, Blood Urea Nitrogen 20H, C-Reactive Protein High Sensitivity 1.85H, Calcium Level 8.9, Carbon Dioxide Level 22, Chloride Level 103, Creatinine 1.07 , D-Dimer 0.30, Eosinophils # (Auto) 0.2, Eosinophils % (Manual) 0, Eosinophils (%) (Auto) 1, Estimat Glomerular Filtration Rate 53, Glucose Level 140H, Hematocrit 42, Hemoglobin 13.4, INR Comment 0.9, Lymphocytes # (Auto) 4.0, Lymphocytes % (Manual) 20, Lymphocytes (%) (Auto) 20, Magnesium Level 1.6L, Mean Corpuscular Hemoglobin 28, Mean Corpuscular Hemoglobin Concent 32, Mean Corpuscular Volume 88, Mean Platelet Volume 9.7, Monocytes # (Auto) 1.2H, Monocytes % (Manual) 5, Monocytes (%) (Auto) 6, Myoglobin 42.8, Neutrophils # ( Auto) 14.5H, Neutrophils % (Manual) 75, Neutrophils (%) (Auto) 73, Platelet Count 294, Potassium Level 4.1, Prothrombin Time 12.0L, Red Blood Count 4.75, Red Cell Distribution Width 14.9H, Sodium Level 138, Total Bilirubin 0.3, Total Protein 6.3L, Troponin I < 0.30, White Blood Count 20.0H 04/04/16 17:35: Lactic Acid Level 3.9*H 04/04/16 18:00: Urine Bacteria NONE, Urine Bilirubin NEGATIVE, Urine Casts NONE, Urine Clarity CLEAR, Urine Color YELLOW, Urine Crystals NONE, Urine Culture Indicated NO, Urine Glucose (UA) NEGATIVE, Urine Ketones NEGATIVE, Urine Leukocyte Esterase NEGATIVE, Urine Mucus NEGATIVE, Urine Nitrite NEGATIVE, Urine Protein 2+H, Urine RBC NONE, Urine RBC (Auto) NEGATIVE, Urine Specific [place] 1.010L, Urine Squamous Epithelial Cells RARE, Urine Urobilinogen NORMAL, Urine WBC NONE, Urine pH 6 04/04/16 19:44: Lactic Acid Level 2.7*H 04/04/16 22:50: Troponin I < 0.30 04/05/16 01:02: Lactic Acid Level 1.8 04/05/16 03:37: Troponin I < 0.30, Lactic Acid Level 0.9, Activated Partial Thromboplast Time 25 , Alanine Aminotransferase (ALT/SGPT) 30, Albumin 3.1L, Alkaline Phosphatase 60 , Anion Gap 10, Aspartate Amino Transf (AST/SGOT) 19, BUN/Creatinine Ratio 16, Basophils # (Auto) 0.0, Basophils (%) (Auto) 0, Blood Urea Nitrogen 12, Calcium Level 7.6L, Carbon Dioxide Level 19L, Chloride Level 111H, Cholesterol Level 173 , Creatinine 0.74, Eosinophils # (Auto) 0.2, Eosinophils (%) (Auto) 2, Estimat Glomerular Filtration Rate > 60, Glucose Level 97, HDL Cholesterol 28L, Hematocrit 36, Hemoglobin 11.4L, INR Comment 1.0, LDL Cholesterol Direct 85, Lymphocytes # (Auto) 2.9, Lymphocytes (%) (Auto) 22, Magnesium Level 1.3L, Mean Corpuscular Hemoglobin 28, Mean Corpuscular Hemoglobin Concent 32, Mean Corpuscular Volume 88, Mean Platelet Volume 9.5, Monocytes # (Auto) 0.7, Monocytes (%) (Auto) 6, Neutrophils # (Auto) 9.1H, Neutrophils (%) (Auto) 70, Phosphorus Level 3.7, Platelet Count 224, Potassium Level 4.2, Prothrombin Time 12.8, Red Blood Count 4.05L, Red Cell Distribution Width 15.0H, Sodium Level 140 , Total Bilirubin 0.3, Total Protein 4.9L, Triglycerides Level 319H, VLDL Cholesterol 64H, White Blood Count 12.9H 04/05/16 08:02: Lactic Acid Level 0.9 04/05/16 11:51: Lactic Acid Level 1.5 Microbiology 04/04/16 Blood Culture - Preliminary, Resulted No growth ECG Impression ECG Initial ECG Rhythm: Normal Sinus A/P-Cardiology Assessment/Admission Diagnosis chest pain, Sepsis of unknown origin, Septic shock Plan chest pain: Acute coronary syndrome has been ruled out with negative EKG and serial troponin. according to the patient she had a normal cardiac catheterization at [facility] 2 years ago. Septic shock: On broad-spectrum antibiotics and IV fluid. Further management as per ICU and medicine team. Cardiology will sign off. Please let me know if you have any further questions. Thank you for your consultation. Please call me if you have any questions. Lacie Velasquez MD, FACP, FACC, FSCAI, FHRS, CCDS Interventional Cardiology Cardiac Electrophysiology Vascular Medicine and Endovascular Interventions Clinical Quality Measures AMI/AHF: ASA po Prior to arrival: No DVT/VTE Risk/Contraindication: Risk Factor Score Per Nursin RFS Level Per Nursing on Admit: 2=Moderate Suly VELASQUEZ MD Apr 05, 2016 3:32 pm
[2016-04-05] MEDS: ACETAMINOPHEN 325 MG TABLET/CAPLET (TYLENOL) PO PRN (17:28)
[2016-04-06 00:46] VITALS: BP 98/43
[2016-04-06] MEDS: ACETAMINOPHEN 325 MG TABLET/CAPLET (TYLENOL) PO PRN (00:50)
[2016-04-06] MEDS: NOREPINEPHRINE 4 MG in D5W 250 ML IV SCH (03:25)
[2016-04-06 04:00] VITALS: BP 105/67
[2016-04-06 04:11] LABS: BASOPHILS % (AUTO) 1 % (0-10); EOSINOPHILS # (AUTO) 0.2 10^3/uL (0.0-0.3); EOSINOPHILS % (AUTO) 3 % (0-10); LYMPHOCYTES # (AUTO) 1.8 X 10^3 (1.0-4.0); LYMPHOCYTES % (AUTO) 29 % (12-44); MEAN CORPUSCULAR HEMOGLOBIN 28 PG (25-34); MEAN CORPUSCULAR HGB CONC 32 G/DL (32-36); MEAN CORPUSCULAR VOLUME 89 FL (80-99); MEAN PLATELET VOLUME 9.5 FL (7.4-10.4); MONOCYTES # (AUTO) 0.6 X 10^3 (0.0-1.0); MONOCYTES % (AUTO) 10 % (0-12); NEUTROPHILS # (AUTO) 3.6 X 10^3 (1.8-7.8); NEUTROPHILS % (AUTO) 59 % (42-75); PLATELET COUNT 208 10^3/uL (130-400); RED BLOOD COUNT 3.69 10^6/uL (4.35-5.85); RED CELL DISTRIBUTION WIDTH 14.8 % (10.0-14.5); WHITE BLOOD COUNT 6.2 10^3/uL (4.3-11.0)
[2016-04-06 04:22] LABS: PROTHROMBIN TIME PATIENT 13.3 SEC (12.2-14.7)
[2016-04-06 04:37] LABS: ALANINE AMINOTRANSFERASE 26 U/L (0-55); ANION GAP 10 MMOL/L (5-14); ASPARTATE AMINO TRANSFERASE 15 U/L (5-34); BILIRUBIN,TOTAL 0.4 MG/DL (0.1-1.0); BLOOD UREA NITROGEN 10 MG/DL (7-18); BUN/CREATININE RATIO 14; CALCIUM 7.8 MG/DL (8.5-10.1); CARBON DIOXIDE 19 MMOL/L (21-32); CHLORIDE 112 MMOL/L (98-107); CREATININE SERUM 0.72 MG/DL (0.60-1.30); GFR ESTIMATED > 60; GLUCOSE 107 MG/DL (70-105); MAGNESIUM 1.4 MG/DL (1.8-2.4); PHOSPHORUS 3.2 MG/DL (2.3-4.7); SODIUM 141 MMOL/L (135-145); TOTAL PROTEIN 4.8 G/DL (6.4-8.2)
[2016-04-06] MEDS: NS IV 1000 ML 1,000 ML IV SCH ×2 (05:12→09:07)
[2016-04-06] MEDS: metroNIDAZOLE 500 MG/100 ML IVPB (PRE-MIX) IV SCH (05:12)
[2016-04-06] MEDS: MAGNESIUM 1 GM/100 ML IVPB 100 ML IV SCH ×2 (05:13→06:40)
[2016-04-06] MEDS: POTASSIUM CL 10MEQ/50ML IVPB 50 ML IV SCH (06:00)
[2016-04-06] MEDS: KCL 20 MEQ TAB (K-DUR) PO SCH (06:00)
[2016-04-06] MEDS: LACTOBACILLUS Acidoph/Bulgar (LACTINEX/FLORANEX) TAB PO SCH ×2 (06:39→12:00)
--- NOTE | 2016-04-06 07:16 | Diagnostic Imaging Report ---
EXAMINATION: Chest radiograph, portable AP view. DATE: April 06, 2016, at 0501 hours. INDICATION: 55-year-old female, sepsis, chest pain, hypotension. COMPARISON: April 05, 2016. FINDINGS: Stable overall appearance of the cardiomediastinal silhouette. There is no identified pneumothorax. There is no large pleural effusion. There is no identified focal airspace consolidation. IMPRESSION: No identified acute cardiopulmonary abnormality. Dictated by: Dictated on workstation # [id number]
--- NOTE | 2016-04-06 07:56 | Pulmonary Progress Note ---
Subjective Subjective/Events-last exam Pt feels much improved and wants to go home. Exam Exam Vital Signs Date Time Temp Pulse Resp B/P Pulse Ox O2 Delivery O2 Flow Rate FiO2 04/06/16 04:00 96.9 04/06/16 04:00 64 15 105/67 98 Nasal Cannula 2.00 04/06/16 01:00 89 04/06/16 00:46 77 16 98/43 98 Nasal Cannula 2.00 04/06/16 00:00 97.0 04/05/16 22:00 79 15 91/60 91 Nasal Cannula 2.00 04/05/16 21:00 96 Nasal Cannula 2.00 04/05/16 21:00 88 15 119/73 94 Nasal Cannula 2.00 04/05/16 20:00 96.5 04/05/16 20:00 92 15 115/56 95 Nasal Cannula 2.00 04/05/16 19:00 97 19 126/68 95 Nasal Cannula 2.00 04/05/16 19:00 97 04/05/16 16:00 86 13 112/65 95 Nasal Cannula 2.00 04/05/16 13:00 93 04/05/16 12:00 84 13 138/73 98 Nasal Cannula 2.00 04/05/16 08:27 Nasal Cannula 2.00 04/05/16 08:00 92 16 111/52 98 Nasal Cannula 2.00 04/05/16 08:00 96 Nasal Cannula 2.00 I & O 04/06/16 07:00 Intake Total 2000 ml Output Total 5800 ml Balance -3800 ml General Appearance: No Apparent Distress WD/WN Anxious HEENT: PERRL/EOMI Normal ENT Inspection Pharynx Normal Neck: Non Tender Supple Respiratory: Chest Non Tender Lungs Clear Normal Breath Sounds No Accessory Muscle Use No Respiratory Distress Cardiovascular: Regular Rate, Rhythm No Edema No Murmur Normal Peripheral Pulses Capillary Refill: Less Than 3 Seconds Extremity: Normal Inspection Non Tender No Calf Tenderness No Pedal Edema Other (negative Krystin) Neurologic/Psychiatric: Alert Oriented x3 No Motor/Sensory Deficits 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 Pt is ok for home from my standpoint. Clinical Quality Measures AMI/AHF: ASA po Prior to arrival: No DVT/VTE Risk/Contraindication: Risk Factor Score Per Nursin RFS Level Per Nursing on Admit: 2=Moderate PATRICIA GUIDRY DO Apr 06, 2016 07:56
[2016-04-06 08:00] VITALS: BP 127/80
[2016-04-06] MEDS: PANTOPRAZOLE 40 MG/10 ML (PROTONIX) VIAL IV SCH (09:13)
[2016-04-06] MEDS: CIPROFLOXACIN 400 MG/D5W 200 ML (PRE-MIX) IV SCH (09:15)
--- NOTE | 2016-04-06 11:28 | Progress Note (SOAP) ---
Subjective Subjective/Events-last exam feels much better and has no specific symptoms. Anxious to go home: hemodynamically stable.blood cultures negative. White cell count back to normal. Review of Systems General: No Chills, No Night Sweats, No Fatigue, No Malaise HEENT: No Head Aches, No Eye Pain, No Ear Pain, No Dysphasia, No Sinus Congestion, No Post Nasal Drip, No Sore Throat Pulmonary: No Dyspnea, No Cough, No Pleuritic Chest Pain Cardiovascular: No: Chest Pain, Edema, Lt Headedness, Orthopnea, Palpitations, Paroxysmal Noc. Dyspnea Gastrointestinal: No: Abdominal Pain, Constipation, Diarrhea, Hematochezia, Melena, Nausea, Vomiting Genitourinary: No Dysuria, No Frequency, No Incontinence, No Hematuria, No Retention Musculoskeletal: No: arm pain, back pain, foot pain, hand pain, leg pain, neck pain, other, shoulder pain Neurological: No: Change in speech, Confusion, Incoordination, Numbness, Other , Seizures, Weakness Objective Exam Vital Signs Date Time Temp Pulse Resp B/P Pulse Ox O2 Delivery O2 Flow Rate FiO2 04/06/16 09:00 93 Room Air 04/06/16 08:00 97.2 97 20 127/80 94 Room Air 04/06/16 07:00 97 04/06/16 04:00 96.9 04/06/16 04:00 64 15 105/67 98 Nasal Cannula 2.00 04/06/16 01:00 89 04/06/16 00:46 77 16 98/43 98 Nasal Cannula 2.00 04/06/16 00:00 97.0 04/05/16 22:00 79 15 91/60 91 Nasal Cannula 2.00 04/05/16 21:00 96 Nasal Cannula 2.00 04/05/16 21:00 88 15 119/73 94 Nasal Cannula 2.00 04/05/16 20:00 96.5 04/05/16 20:00 92 15 115/56 95 Nasal Cannula 2.00 04/05/16 19:00 97 19 126/68 95 Nasal Cannula 2.00 04/05/16 19:00 97 04/05/16 16:00 86 13 112/65 95 Nasal Cannula 2.00 04/05/16 13:00 93 04/05/16 12:00 84 13 138/73 98 Nasal Cannula 2.00 I & O 04/06/16 07:00 Intake Total 2000 ml Output Total 5800 ml Balance -3800 ml Capillary Refill : Less Than 3 Seconds General Appearance: No Apparent Distress HEENT: PERRL/EOMI Neck: Normal Inspection Respiratory: Lungs Clear Cardiovascular: Regular Rate, Rhythm Gastrointestinal: non tender Extremity: Normal Capillary Refill Neurologic/Psychiatric: Alert Oriented x3 Skin: Warm/Dry Results Lab Laboratory Tests 04/05/16 11:51: Lactic Acid Level 1.5 04/05/16 15:49: Lactic Acid Level 1.2 04/06/16 03:44: Lactic Acid Level 0.6, Activated Partial Thromboplast Time 25, Alanine Aminotransferase (ALT/SGPT) 26, Albumin 3.0L, Alkaline Phosphatase 52, Anion Gap 10, Aspartate Amino Transf (AST/SGOT) 15, B-Type Natriuretic Peptide 144.3H , BUN/Creatinine Ratio 14, Basophils # (Auto) 0.0, Basophils (%) (Auto) 1, Blood Urea Nitrogen 10, Calcium Level 7.8L, Carbon Dioxide Level 19L, Chloride Level 112H, Creatinine 0.72, Eosinophils # (Auto) 0.2, Eosinophils (%) (Auto) 3 , Estimat Glomerular Filtration Rate > 60, Glucose Level 107H, Hematocrit 33L, Hemoglobin 10.4L, INR Comment 1.0, Lymphocytes # (Auto) 1.8, Lymphocytes (%) ( Auto) 29, Magnesium Level 1.4L, Mean Corpuscular Hemoglobin 28, Mean Corpuscular Hemoglobin Concent 32, Mean Corpuscular Volume 89, Mean Platelet Volume 9.5, Monocytes # (Auto) 0.6, Monocytes (%) (Auto) 10, Neutrophils # (Auto ) 3.6, Neutrophils (%) (Auto) 59, Phosphorus Level 3.2, Platelet Count 208, Potassium Level 4.0, Prothrombin Time 13.3, Red Blood Count 3.69L, Red Cell Distribution Width 14.8H, Sodium Level 141, Total Bilirubin 0.4, Total Protein 4.8L, White Blood Count 6.2 Microbiology 04/04/16 Blood Culture - Preliminary, Resulted No growth Assessment/Plan Assessment/Plan Assess & Plan/Chief Complaint unexplained hypotension and substernal discomfort. Negative evaluation for pulmonary embolism and aneurysmal disease. Blood cultures negative. Mesenteric lymphadenitis on CT scan, of unknown significance. No abdominal symptoms. Could be discharged with follow-up with her primary physician. Diagnosis/Problems: Final Diagnosis sepsis of unknown origin Clinical Quality Measures AMI/AHF: ASA po Prior to arrival: No DVT/VTE Risk/Contraindication: Risk Factor Score Per Nursin RFS Level Per Nursing on Admit: 2=Moderate SERA REA MD Apr 06, 2016 11:28 am
[2016-04-06 12:00] VITALS: BP 133/84
[2016-04-06] MEDS ORDERED: METR500T PO (12:57)
[2016-04-06] MEDS ORDERED: CIPR500T4 PO (12:57)
--- NOTE | 2016-04-06 12:59 | Discharge Instructions ---
Discharge Instructions Discharge Medications New, Converted or Re-Newed RX: Transmitted to Pharmacy New Medications: Ciprofloxacin HCl (Ciprofloxacin HCl) 500 Mg Tablet 500 MG PO BID #8 TAB Metronidazole (Flagyl) 500 Mg Tablet 500 MG PO TID #12 TAB Patient Instructions Goal/Follow Up Appt: Dr Luh Noguera this week Activity & Diet Discharge Diet: Low Residue Activity as Tolerated: Yes OMER DEL ROSARIO DO Apr 06, 2016 12:59
--- NOTE | 2016-04-06 13:00 | Discharge Summary-Hospitalist ---
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 Noguera but returns rapidly Obstructive sleep apnea Chronic chest pain of unknown etiology has had full workup in the past Discharge Diagnosis Leukocytosis with mesenteric lymphadenitis on CT scan with hypotension requiring IV fluid resuscitation and pressor therapy Long-standing illness per patient improved on periodic antibiotic administration by primary care provider Dr. Noguera but returns rapidly Obstructive sleep apnea Chronic chest pain of unknown etiology has had full workup in the past Maintain in cardiac stepdown Await cardiology recommendations Maintain IV fluid and antibiotic administration Appreciate general surgery input Monitor closely Reason Hospital Visit/Course Chief complaint: Fever and leukocytosis with hypotension requiring pressor therapy with IV fluid resuscitation History of present illness: This is a 55-year-old white female clinic patient of Dr. 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 She reported chest pain also and has a long history of chronic chest pain and had a detailed cardiac workup at [facility] due to this issue. She reports that overall she has not felt well for a long time feeling like she is completely spent and drained by Thursday after work week and sleeps most of the weekend to recover until going back on Thursday. Dr. Noguera usually places her on an antibiotic of which she feels much better but it does not last long. 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 We have just stopped pressor therapy after IV fluid resuscitation but blood pressure is cycled to be 110s. Her white count did go down from 20k to 12,000 and overall she feels much better. Patient is doing much better and labs have returned back to normal and no fever and no hypotension Patient ready to go General surgery approves discharge Cardiology has no further workup prior to discharge Pleasant, oriented 3, cooperative Regular rate and rhythm, clear to auscultation bilaterally No edema normal range of motion Nontender abdomen Hospital course: Patient had a brief hospital course that required ICU admission due to leukocytosis and hypotension from sepsis and mesenteric lymphadenitis on CT scan. Cardiology was consulted for chest pain and overall she has had multiple workups in the past for chronic chest pain of unknown etiology so Dr. Velasquez had no recommendations to do anything further we'll hospitalize during this time. General surgery was consulted for mesenteric lymphadenitis and empiric antibiotics were initiated and supported by general surgery. On patient was deemed stable for discharge with close follow-up with Dr. Noguera since this is a chronic ongoing illness for the past 2 months that is mysterious considering no definite etiology but responds to antibiotics and presented to sepsis with hypotension requiring IV fluid resuscitation and pressor therapy. Overall she was stable and wished to go home and I sent the prescriptions into her pharmacy in [place]. Discharge Summary Discharge Physical Examination Allergies: Coded Allergies: erythromycin base (Verified Allergy, Unknown, 04/04/16) Unspecified adverse reactions morphine (Verified Allergy, Unknown, 04/04/16) cefdinir (Verified Adverse Reaction, Severe, 04/04/16) Diarrhea and C. difficile colitis clindamycin (Verified Adverse Reaction, Severe, 04/04/16) Diarrhea and C. difficile colitis Vitals & I&Os Vital Signs Date Time Temp Pulse Resp B/P Pulse Ox O2 Delivery O2 Flow Rate FiO2 04/06/16 12:00 97.4 87 20 133/84 100 Room Air 04/06/16 04:00 2.00 Hospital Course Labs (last 24 hrs) Laboratory Tests 04/05/16 15:49: Lactic Acid Level 1.2 04/06/16 03:44: Lactic Acid Level 0.6, Activated Partial Thromboplast Time 25, Alanine Aminotransferase (ALT/SGPT) 26, Albumin 3.0L, Alkaline Phosphatase 52, Anion Gap 10, Aspartate Amino Transf (AST/SGOT) 15, B-Type Natriuretic Peptide 144.3H , BUN/Creatinine Ratio 14, Basophils # (Auto) 0.0, Basophils (%) (Auto) 1, Blood Urea Nitrogen 10, Calcium Level 7.8L, Carbon Dioxide Level 19L, Chloride Level 112H, Creatinine 0.72, Eosinophils # (Auto) 0.2, Eosinophils (%) (Auto) 3 , Estimat Glomerular Filtration Rate > 60, Glucose Level 107H, Hematocrit 33L, Hemoglobin 10.4L, INR Comment 1.0, Lymphocytes # (Auto) 1.8, Lymphocytes (%) ( Auto) 29, Magnesium Level 1.4L, Mean Corpuscular Hemoglobin 28, Mean Corpuscular Hemoglobin Concent 32, Mean Corpuscular Volume 89, Mean Platelet Volume 9.5, Monocytes # (Auto) 0.6, Monocytes (%) (Auto) 10, Neutrophils # (Auto ) 3.6, Neutrophils (%) (Auto) 59, Phosphorus Level 3.2, Platelet Count 208, Potassium Level 4.0, Prothrombin Time 13.3, Red Blood Count 3.69L, Red Cell Distribution Width 14.8H, Sodium Level 141, Total Bilirubin 0.4, Total Protein 4.8L, White Blood Count 6.2 Microbiology 04/04/16 Blood Culture - Preliminary, Resulted No growth Discharge Home Medications: Active Scripts Active Flagyl (Metronidazole) 500 Mg Tablet 500 Mg PO TID Ciprofloxacin HCl 500 Mg Tablet 500 Mg PO BID Instructions to patient/family Please see electonic discharge instructions given to patient. Clinical Quality Measures AMI/AHF: ASA po Prior to arrival: No DVT/VTE Risk/Contraindication: Risk Factor Score Per Nursin RFS Level Per Nursing on Admit: 2=Moderate OMER DEL ROSARIO DO Apr 06, 2016 13:00
[2016-04-06] MEDS ORDERED: METO-352 PO (14:04)
[2016-04-06] MEDS ORDERED: MAGN250T PO (14:04)
[2016-04-06] MEDS ORDERED: CERTIRIZINE (14:04)
[2016-04-06] MEDS ORDERED: FURO20TA4 PO (14:04)
[2016-04-06] MEDS ORDERED: LOPE-134 PO (14:04)
[2016-04-06] MEDS ORDERED: MELO15TA39 PO (14:04)
[2016-04-06] MEDS ORDERED: ESOM20CA PO (14:04)
[2016-04-06] MEDS ORDERED: HYDR-3812 PO (14:04)
[2016-04-06] MEDS ORDERED: ACID1GRA2 PO (14:04)
[2016-04-06] MEDS ORDERED: LISI10TA2 PO (14:04)
[2016-04-06 16:28] VITALS: BP 133/84
== END 2016-04-06 14:20 | disposition home or self-care (01) | DRG 872 ==
LOC: ER 16:06 → ICU 19:44 → CSD 19:44
PROVIDERS: ADMIT Internal Medicine; ATTEND Internal Medicine
DX: A41.9 Sepsis, unspecified organism (principal); K65.4 Sclerosing mesenteritis; D72.829 Elevated white blood cell count, unspecified; G47.33 Obstructive sleep apnea (adult) (pediatric); R07.9 Chest pain, unspecified; I95.9 Hypotension, unspecified; E83.52 Hypercalcemia; E66.9 Obesity, unspecified; Z68.36 Body mass index [BMI] 36.0-36.9, adult
CPT/HCPCS: 36415; 51702; 71010; 71275; 74174; 80053; 80061; 81000; 83605; 83735; 83874; 83880; 84100; 84484; 85007; 85025; 85027; 85379; 85610; 85730; 86141; 87040; 87081; 93005; 93041; 96361; 96365; 96375